=== PATIENT | male | born 1975 | race African-American/Black ===

== ENCOUNTER 2024-05-15 06:44 | Day surgery (SDC) | payer BC ==
[~2024-05-15] VITALS: Ht 175.3 cm; Wt 116.1 kg
[~2024-05-15 06:44] MED LIST: LR 1,000 ML IV SCH; Ondansetron 4 MG/2 ML VIAL IV PRN
[2024-05-15 06:57] VITALS: BP 132/81; PULSE 52; TEMP 97
[2024-05-15] MEDS ORDERED: fentaNYL 50 MCG/ML 2 ML VIAL ONE (06:59)
[2024-05-15] MEDS ORDERED: Lidocaine PF 2% (20 MG/ML) 5 ML VIAL ONE (06:59)
--- NOTE | 2024-05-15 07:23 | NUR ---
The patient arrived to [facility] at 0656 and ambulated back with a steady gait and appeared to tolerate the activity well. Vital signs otbained. Consent signed. 20G IV started in right hand with one stick, LR infusing without difficulty. Assessment completed. Home medications reconcilled. Warm blanket provided. 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 The patient denies any further needs at this time.
[2024-05-15 08:15] VITALS: BP 122/69; PULSE 58; TEMP 96.8
--- NOTE | 2024-05-15 08:15 | NUR ---
PATIENT AMBULATED TO CHAIR WITH STEADY GAIT, ASSIST OF 2. ALERT AND AWAKE. DENIES PAIN, NAUSEA AND SHORTNESS OF BREATH. BREATHING REGULAR AND UNLABORED ON ROOM AIR. SKIN WARM AND DRY. IV IN PLACE. NURSE HANDOFF COMPLETED IN ROOM. SEE CHART FOR VITAL SIGNS. PATIENT HAD APPLE JUICE AND A MUFFIN. BOTH FOOD AND DRINK TOLERATED WELL.
[2024-05-15 08:30] VITALS: BP 112/76; PULSE 59
[2024-05-15 08:35] VITALS: BP 122/77; PULSE 53
--- NOTE | 2024-05-15 09:05 | NUR ---
0834: DISCHARGE TEACHING COMPLETED WITH PRINTED EDUCATION AND INSTRUCTIONS SENT HOME WITH PATIENT. PATIENT VERBALIZED UNDERSTANDING OF TEACHING. 0838: IV REMOVED. GAUZE AND COBAN PLACED OVER SITE. 0857: MET WITH PATIENT IN ROOM TO DISCUSS PROCEDURE. 0905: PATIENT DISCHARGED HOME WITH AN ADULT STUDENT OF HIS TRANSPORT.
== END 2024-05-15 09:05 | disposition home or self-care (01) ==
LOC: SDCO 06:44
DX: Z12.11 Encounter for screening for malignant neoplasm of colon (principal); E66.9 Obesity, unspecified
CPT/HCPCS: J2704; J3010; J7120